=== PATIENT | female | born 1955 | race Hispanic/Latino ===

== ENCOUNTER → 2020-01-11 | Outpatient (CLI) | payer OTHER | END | disposition home or self-care (01) | LOC: SHCH 12:51 | PROVIDERS: ATTEND Internal Medicine Cardiovascular Disease | DX: I08.0 Rheumatic disorders of both mitral and aortic valves (principal); Z95.2 Presence of prosthetic heart valve | CPT/HCPCS: 93306; 93356 ==

== ENCOUNTER → 2022-01-30 | Outpatient (CLI) | payer OTHER | END | disposition home or self-care (01) | LOC: SHCH 14:13 | PROVIDERS: ATTEND Internal Medicine Cardiovascular Disease | DX: I35.1 Nonrheumatic aortic (valve) insufficiency (principal); I11.9 Hypertensive heart disease without heart failure; E78.5 Hyperlipidemia, unspecified; Z95.2 Presence of prosthetic heart valve | CPT/HCPCS: 93306 ==